=== PATIENT | male | born 1960 | race Caucasian/White ===

== ENCOUNTER 2016-08-27 12:16 | Day surgery (SDC) | payer BC ==
[2016-08-27] MEDS ORDERED: PROPOFOL 10 MG/ML VIAL IV ONE (15:47)
[2016-08-27] MEDS ORDERED: MIDAZOLAM HCL 2MG/2ML VIAL IV ONE (15:47)
[2016-08-27] MEDS ORDERED: LIDOCAINE 2% MDV (20MG/ML) 20ML VIAL IV ONE (15:47)
--- NOTE | 2016-08-28 16:16 | Operative Note ---
DATE OF SURGERY: REFERRING PHYSICIAN: Dr. Rio Daniel PREOPERATIVE DIAGNOSIS: Cancerous rectal polyp. POSTOPERATIVE DIAGNOSES: 1. Sigmoid polyp. 2. Rectal scar. 3. Hemorrhoids. OPERATION: COLONOSCOPY WITH COLD SNARE POLYPECTOMY. PREPARATION QUALITY: Good. Estimated Blood Loss: Minimal. SPECIMEN: Includes sigmoid polyp. COMPLICATIONS: None apparent. PROCEDURE: After informed consent was obtained from the patient, he was placed in the left lateral decubitus position in the Endoscopy Suite, sedated and monitored by the Department of Anesthesia. Digital rectal exam revealed no palpable mass. A well-lubricated CF-160AL colonoscope was inserted into the rectum and advanced to the cecum. Preparation quality was good. The ileocecal valve, appendiceal orifice, cecal cap, ascending colon, transverse colon, and descending colon were free of inflammatory changes, masses, lesions or polyps. There was a 4-5 mm sessile polyp in the sigmoid colon removed via cold snare with minimal bleeding noted. The remainder of the sigmoid colon was unremarkable. In the rectum, there was noted to be a scar and previous tattooing. No mucosal irregularity was otherwise noted. No polyp tissue was seen. J-turn views of the anorectum revealed internal and external hemorrhoids. The endoscope was straightened, the rectal ampulla deflated and the endoscope was removed. RECOMMENDATIONS: The patient is to resume his medications and diet. He is to undergo repeat colonoscopy in 3 years based on his history. As always, thank you for allowing me to participate in the care of your patient. CC: Dr. Rio FRANKLIN
== END 2016-08-27 12:19 | disposition home or self-care (01) ==
LOC: HOP 12:16
PROVIDERS: ATTEND Internal Medicine Gastroenterology
DX: Z86.010 Personal history of colon polyps (principal); K63.5 Polyp of colon